=== PATIENT | female | born 1990 | race American Indian/Alaskan Native ===

== ENCOUNTER 2020-11-17 05:46 | Emergency (ER) | payer OTHER ==
[2020-11-17 06:25] VITALS: BP 114/75
--- NOTE | 2020-11-17 07:29 | XRay Report ---
Right hand 3 views INDICATION: Right hand pain and swelling IMPRESSION: Prominent edema within the dorsal aspect of the right hand. The bones and joint spaces ap pear intact. Signer Name: Arnav Whelan MD Signed: 11/17/2020 7:24 AM Workstation Name: [id number]
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
== END 2020-11-17 07:54 | disposition left against medical advice (07) ==
LOC: ED 05:46
DX: S60.221A Contusion of right hand, initial encounter (principal); F12.90 Cannabis use, unspecified, uncomplicated; V49.49XA Driver injured in collision with other motor vehicles in traffic accident, initial encounter; Y92.410 Unspecified street and highway as the place of occurrence of the external cause; Y93.89 Activity, other specified; Y99.8 Other external cause status